=== PATIENT | male | born 1990 | race Caucasian/White ===

== ENCOUNTER 2019-10-30 13:16 | Outpatient (CLI) | payer SELFPAY ==
[2019-10-30 14:20] LABS: Liquefaction Semen Complete in 30 min. (<30 minutes); Semen Color Opaque (Grey-opaque); Semen Immotility 70 %; Semen Morphology Result to Follow; Semen Non-Progressive Motility 10 %; Semen Progressive Motility 20 % (>32); Semen Total Motility 30 (>40% (PM+NP)); Semen Viscosity Not Increased (Not Increa.); Volume Semen 3.5 mL (1.5-5.0)
[2019-10-30 14:21] LABS: Sperm Count 7.9 Mil/mL (60-150 million/mL)
[2019-11-03 13:43] LABS: Fructose, Semen 370 mg/dL (150-600)
== END 2019-10-30 13:17 | disposition home or self-care (01) ==
LOC: CHSLAB 13:20
PROVIDERS: Visit Provider Advanced Practice Midwife
DX: Z30.9 Encounter for contraceptive management, unspecified (principal)
CPT/HCPCS: 82757; 88160; 89320